=== PATIENT | male | born 1970 | race Hispanic/Latino ===

== ENCOUNTER 2018-02-01 23:55 | Inpatient (IN) | payer OTHER ==
[~2018-02-01 23:55] MED LIST: ASPI-1197 PO; ATOR20TA65 PO; CARV12.580 PO; ISOS30TA6 PO
[2018-02-02] MEDS ORDERED: LABETALOL HCL 5 MG/ML 20ML VIAL IV ONE (00:20)
[2018-02-02 00:39] LABS: BASOPHILS % (AUTO) 0.3 % (0.0-5.0); EOSINOPHILS % (AUTO) 2.1 % (0.0-8.0); HEMATOCRIT 21.3 % (42-54); LYMPHOCYTES % (AUTO) 10.7 % (21.0-51.0); MEAN CORPUSCULAR HEMOGLOBIN 27.5 pg (27.0-33.0); MEAN CORPUSCULAR HGB CONC 33.1 g/dL (32.0-36.0); MEAN CORPUSCULAR VOLUME 83.2 fL (79-99); MONOCYTES % (AUTO) 9.1 % (3.0-13.0); NEUTROPHILS % (AUTO) 77.8 % (40.0-77.0); PLATELET COUNT (AUTO) 259 K/uL (130-400); RED BLOOD CELL COUNT(AUTO) 2.56 MIL/uL (4.50-6.20); RED CELL DISTRIBUTION WIDTH 19.1 % (11.0-15.5); WHITE BLOOD COUNT (AUTO) 11.2 K/uL (4.8-10.8)
[2018-02-02 00:50] LABS: INR 0.96 (0.85-1.15); PARTIAL THROMBOPLASTIN TIME 27.1 SEC (26.3-35.5); PROTHROMBIN TIME 10.1 SEC (9.6-11.6)
[2018-02-02 01:15] LABS: ALBUMIN 3.4 g/dL (3.5-5.0); BILIRUBIN,TOTAL 0.4 mg/dL (0.2-1.0); CREATINE KINASE MB 15.9 ng/mL (0.5-3.6); TOTAL PROTEIN, SERUM 7.1 g/dL (6.0-8.3)
[2018-02-02 01:20] LABS: CREATININE 13.5 mg/dL (0.5-1.5); POTASSIUM 6.9 mmol/L (3.5-5.1)
[2018-02-02] MEDS ORDERED: HYDRALAZINE HCL 20 MG/ML VIAL ONE ×2 (01:29→10:13)
[2018-02-02] MEDS ORDERED: SODIUM BICARB 50MEQ 50ML VIAL ONE (01:32)
[2018-02-02] MEDS ORDERED: DEXTROSE 50%-WATER 50 ML DISP.SYRIN IV ONE (01:33)
[2018-02-02] MEDS ORDERED: INSULIN HUMULIN R 100 UNIT/ML 3ML ONE (01:33)
[2018-02-02] MEDS ORDERED: SODIUM POLYSTYRENE SULFONATE 15 GM/60 ML ML ONE (01:35)
[2018-02-02] MEDS ORDERED: FUROSEMIDE 10 MG/ML 4ML VIAL ONE (02:16)
[2018-02-02] MEDS ORDERED: NITROGLYCERIN 1GM/1 INCH PACKET TD ONE (02:16)
[2018-02-02] MEDS ORDERED: ASPIRIN 325 MG TABLET ONE (02:39)
[2018-02-02 05:15] LABS: BASOPHILS % (AUTO) 0.6 % (0.0-5.0); EOSINOPHILS % (AUTO) 0.8 % (0.0-8.0); MEAN CORPUSCULAR HEMOGLOBIN 28.4 pg (27.0-33.0); MEAN CORPUSCULAR HGB CONC 34.2 g/dL (32.0-36.0); MONOCYTES % (AUTO) 5.2 % (3.0-13.0); NEUTROPHILS % (AUTO) 87.4 % (40.0-77.0); PLATELET COUNT (AUTO) 205 K/uL (130-400); RED BLOOD CELL COUNT(AUTO) 2.09 MIL/uL (4.50-6.20); RED CELL DISTRIBUTION WIDTH 18.7 % (11.0-15.5); WHITE BLOOD COUNT (AUTO) 9.2 K/uL (4.8-10.8)
[2018-02-02 05:32] LABS: HEMATOCRIT 17.3 % (42-54)
[2018-02-02 05:46] LABS: POTASSIUM 6.8 mmol/L (3.5-5.1)
[2018-02-02 05:47] LABS: CREATININE 13.6 mg/dL (0.5-1.5)
[2018-02-02] MEDS ORDERED: SODIUM CHLORIDE 0.9% 1000ML 1,000 ML IV ONE (05:58)
[2018-02-02] MEDS ORDERED: FUROSEMIDE 10 MG/ML 2ML VIAL ONE (10:13)
[2018-02-02] MEDS ORDERED: LIDOCAINE HCL 1% MDV 50ML VIAL ONE (11:24)
[2018-02-02 19:43] LABS: HEMATOCRIT 21.8 % (42-54)
[2018-02-02 20:00] LABS: CHOLESTEROL 185 mg/dL (<200); HDL CHOLESTEROL 49 mg/dL (29-71); LDL DIRECT 139 mg/dL (0-99); TRIGLYCERIDES 90 mg/dL (30-200)
[2018-02-02 20:32] LABS: % IRON SATURATION 21.6 % (30-44)
[2018-02-03 06:12] LABS: MEAN CORPUSCULAR HGB CONC 35.9 g/dL (32.0-36.0); MEAN CORPUSCULAR VOLUME 83.4 fL (79-99); NUCLEATED RED BLOOD CELLS 0.1 % (0.0-0.19); PLATELET COUNT (AUTO) 160 K/uL (130-400); RED BLOOD CELL COUNT(AUTO) 2.29 MIL/uL (4.50-6.20); RED CELL DISTRIBUTION WIDTH 18.3 % (11.0-15.5); WHITE BLOOD COUNT (AUTO) 6.6 K/uL (4.8-10.8)
[2018-02-03 06:26] LABS: POTASSIUM 5.8 mmol/L (3.5-5.1)
[2018-02-03 06:28] LABS: CREATININE 12.2 mg/dL (0.5-1.5)
[2018-02-03 06:29] LABS: HEMATOCRIT 19.1 % (42-54)
[2018-02-03 06:30] LABS: INR 1.02 (0.85-1.15); PROTHROMBIN TIME 10.7 SEC (9.6-11.6)
[2018-02-03] MEDS: FAMOTIDINE 20MG TAB 20 MG TAB PO SCH (09:00)
[2018-02-03] MEDS: ISOSORBIDE MONO 30MG TAB SR PO SCH (09:00)
[2018-02-03] MEDS ORDERED: CARVEDILOL 12.5 MG TABLET PO ONE (10:39)
[2018-02-03] MEDS ORDERED: FAMOTIDINE 20MG TAB 20 MG TAB ONE (10:39)
[2018-02-03] MEDS ORDERED: ISOSORBIDE MONO 30MG TAB SR PO ONE (10:39)
[2018-02-03 19:30] VITALS: BP 187/98
[2018-02-03] MEDS: CARVEDILOL 25 MG TABLET PO SCH (19:48)
[2018-02-03] MEDS: INSULIN HUMULIN R 100 UNIT/ML 3ML SQ SCH (21:00)
[2018-02-03] MEDS ORDERED: SODIUM CHLORIDE 0.9% 250 ML IV ONE (21:18)
[2018-02-03 23:05] VITALS: BP 188/96
[2018-02-04] VITALS (7 sets, daily range): BP systolic 148–179; BP diastolic 72–100
[2018-02-04 03:31] LABS: HEMATOCRIT 22.9 % (42-54); MEAN CORPUSCULAR HGB CONC 34.9 g/dL (32.0-36.0); MEAN CORPUSCULAR VOLUME 83.1 fL (79-99); PLATELET COUNT (AUTO) 159 K/uL (130-400); RED BLOOD CELL COUNT(AUTO) 2.75 MIL/uL (4.50-6.20); RED CELL DISTRIBUTION WIDTH 17.7 % (11.0-15.5); WHITE BLOOD COUNT (AUTO) 7.3 K/uL (4.8-10.8)
[2018-02-04 03:43] LABS: MAGNESIUM 2.8 mg/dL (1.80-2.40)
[2018-02-04 03:52] LABS: CREATININE 9.8 mg/dL (0.5-1.5)
[2018-02-04] MEDS: INSULIN HUMULIN R 100 UNIT/ML 3ML SQ SCH ×4 (05:58→21:43)
[2018-02-04 07:59] LABS: HEPATITIS Bs ANTIGEN SCREEN P Negative (Negative)
[2018-02-04] MEDS: CARVEDILOL 25 MG TABLET PO SCH ×2 (09:19→21:35)
[2018-02-04] MEDS: ISOSORBIDE MONO 30MG TAB SR PO SCH (09:20)
[2018-02-04] MEDS: FAMOTIDINE 20MG TAB 20 MG TAB PO SCH (09:20)
[2018-02-04] MEDS: MAG HYDROX/AL HYDROX/SIMETH ES 30 ML SUSP UDCUP PO PRN (13:08)
[2018-02-04] MEDS ORDERED: SODIUM CHLORIDE 0.9% 1000ML 1,000 ML IV ONE (14:00)
[2018-02-04] MEDS: CALCIUM ACETATE 667 MG CAPSULE PO SCH (17:00)
[2018-02-04] MEDS: HYDRALAZINE HCL 20 MG/ML VIAL IV PRN (18:03)
[2018-02-05] MEDS ORDERED: ONDANSETRON HCL MDV 20ML 2 MG/ML VIAL ONE (02:35)
[2018-02-05] MEDS ORDERED: ONDANSETRON HCL MDV 20ML 2 MG/ML VIAL IVP PRN (02:45)
[2018-02-05 03:51] VITALS: BP 191/100
[2018-02-05 04:56] LABS: HEMATOCRIT 21.7 % (42-54); MEAN CORPUSCULAR HEMOGLOBIN 29.9 pg (27.0-33.0); MEAN CORPUSCULAR HGB CONC 35.5 g/dL (32.0-36.0); MEAN CORPUSCULAR VOLUME 84.1 fL (79-99); PLATELET COUNT (AUTO) 144 K/uL (130-400); RED BLOOD CELL COUNT(AUTO) 2.57 MIL/uL (4.50-6.20); RED CELL DISTRIBUTION WIDTH 17.2 % (11.0-15.5); WHITE BLOOD COUNT (AUTO) 6.8 K/uL (4.8-10.8)
[2018-02-05 05:30] LABS: CREATININE 7.6 mg/dL (0.5-1.5); PHOSPHORUS 5.4 mg/dL (2.5-4.9); POTASSIUM 4.5 mmol/L (3.5-5.1)
[2018-02-05] MEDS: INSULIN HUMULIN R 100 UNIT/ML 3ML SQ SCH ×4 (06:06→20:43)
[2018-02-05 07:00] VITALS: BP 133/74
[2018-02-05] MEDS: CALCIUM ACETATE 667 MG CAPSULE PO SCH ×3 (08:15→17:00)
[2018-02-05] MEDS: FOLIC ACID/VITAMIN B COMP W-C 1 MG CAPSULE PO SCH (08:16)
[2018-02-05] MEDS: ISOSORBIDE MONO 30MG TAB SR PO SCH (08:16)
[2018-02-05] MEDS: CARVEDILOL 25 MG TABLET PO SCH ×2 (08:16→20:00)
[2018-02-05] MEDS: FAMOTIDINE 20MG TAB 20 MG TAB PO SCH (08:17)
[2018-02-05 11:00] VITALS: BP_SYST 125; BP_SYST 135; BP_DIAS 67; BP_DIAS 75
[2018-02-05] MEDS ORDERED: LACTULOSE 20 GM/30 ML UDCUP PO PRN (12:00)
[2018-02-05 16:00] VITALS: BP 174/86
[2018-02-05] MEDS ORDERED: HEPARIN SODIUM 5000UNIT/ML 1ML VIAL ONE (18:37)
[2018-02-05] MEDS ORDERED: SODIUM CHLORIDE 0.9% 1000ML 1,000 ML IV ONE (18:37)
[2018-02-05 19:32] VITALS: BP 174/94
[2018-02-05 23:55] VITALS: BP 165/93
[2018-02-06 03:46] VITALS: BP 169/94
[2018-02-06 04:53] LABS: HEMATOCRIT 21.7 % (42-54); MEAN CORPUSCULAR HEMOGLOBIN 29.3 pg (27.0-33.0); MEAN CORPUSCULAR HGB CONC 35.3 g/dL (32.0-36.0); MEAN CORPUSCULAR VOLUME 83.1 fL (79-99); PLATELET COUNT (AUTO) 142 K/uL (130-400); RED BLOOD CELL COUNT(AUTO) 2.61 MIL/uL (4.50-6.20); RED CELL DISTRIBUTION WIDTH 17.3 % (11.0-15.5); WHITE BLOOD COUNT (AUTO) 7.1 K/uL (4.8-10.8)
[2018-02-06 05:15] LABS: CREATININE 6.5 mg/dL (0.5-1.5); POTASSIUM 4.6 mmol/L (3.5-5.1)
[2018-02-06 05:26] LABS: INR 0.96 (0.85-1.15); PARTIAL THROMBOPLASTIN TIME 25.7 SEC (26.3-35.5); PROTHROMBIN TIME 10.1 SEC (9.6-11.6)
[2018-02-06] MEDS: INSULIN HUMULIN R 100 UNIT/ML 3ML SQ SCH ×4 (06:11→22:03)
[2018-02-06 07:00] VITALS: BP 167/89
[2018-02-06] MEDS: ISOSORBIDE MONO 30MG TAB SR PO SCH (09:02)
[2018-02-06] MEDS: FAMOTIDINE 20MG TAB 20 MG TAB PO SCH (09:02)
[2018-02-06] MEDS: CARVEDILOL 25 MG TABLET PO SCH ×2 (09:03→21:59)
[2018-02-06] MEDS: FOLIC ACID/VITAMIN B COMP W-C 1 MG CAPSULE PO SCH (09:03)
[2018-02-06] MEDS: CALCIUM ACETATE 667 MG CAPSULE PO SCH ×3 (09:03→17:19)
[2018-02-06 11:00] VITALS: BP 134/72
[2018-02-06] MEDS ORDERED: EPOETIN ALFA 20,000 UNIT/ML VIAL SQ SCH ×3 (12:30→13:45)
[2018-02-06] MEDS ORDERED: EPOETIN ALFA 10,000 UNIT/ML VIAL SQ SCH (14:00)
[2018-02-06 16:00] VITALS: BP 161/87
[2018-02-06 19:29] VITALS: BP 185/89
[2018-02-06 23:30] VITALS: BP 199/107
[2018-02-06] MEDS: HYDRALAZINE HCL 20 MG/ML VIAL IV PRN (23:46)
[2018-02-07] VITALS (13 sets, daily range): BP systolic 129–178; BP diastolic 68–104
[2018-02-07 04:11] LABS: BASOPHILS % (AUTO) 0.5 % (0.0-5.0); EOSINOPHILS % (AUTO) 3.4 % (0.0-8.0); HEMATOCRIT 21.8 % (42-54); MEAN CORPUSCULAR HEMOGLOBIN 30.1 pg (27.0-33.0); MEAN CORPUSCULAR HGB CONC 35.9 g/dL (32.0-36.0); MEAN CORPUSCULAR VOLUME 83.9 fL (79-99); MONOCYTES % (AUTO) 14.6 % (3.0-13.0); NEUTROPHILS % (AUTO) 68.5 % (40.0-77.0); PLATELET COUNT (AUTO) 156 K/uL (130-400); RED CELL DISTRIBUTION WIDTH 17.4 % (11.0-15.5); WHITE BLOOD COUNT (AUTO) 8.2 K/uL (4.8-10.8)
[2018-02-07 04:20] LABS: INR 0.97 (0.85-1.15); PARTIAL THROMBOPLASTIN TIME 25.6 SEC (26.3-35.5); PROTHROMBIN TIME 10.2 SEC (9.6-11.6)
[2018-02-07 04:26] LABS: CREATININE 7.4 mg/dL (0.5-1.5); POTASSIUM 4.7 mmol/L (3.5-5.1)
[2018-02-07] MEDS: INSULIN HUMULIN R 100 UNIT/ML 3ML SQ SCH ×4 (06:05→21:16)
[2018-02-07] MEDS: CALCIUM ACETATE 667 MG CAPSULE PO SCH ×3 (08:00→17:09)
[2018-02-07] MEDS: CARVEDILOL 25 MG TABLET PO SCH ×3 (09:00→20:41)
[2018-02-07] MEDS: FOLIC ACID/VITAMIN B COMP W-C 1 MG CAPSULE PO SCH ×2 (09:00→12:08)
[2018-02-07] MEDS: FAMOTIDINE 20MG TAB 20 MG TAB PO SCH (09:00)
[2018-02-07] MEDS: ISOSORBIDE MONO 30MG TAB SR PO SCH ×2 (09:00→12:09)
[2018-02-07] MEDS ORDERED: LIDOCAINE HCL 1% MDV 50ML VIAL ONE (10:44)
[2018-02-07] MEDS ORDERED: 0.9% SODIUM CHLORIDE 250 ML IV BAG IV PRN (17:15)
[2018-02-08 04:03] VITALS: BP 155/83
[2018-02-08 04:42] LABS: HEMATOCRIT 23.6 % (42-54); MEAN CORPUSCULAR HEMOGLOBIN 29.1 pg (27.0-33.0); MEAN CORPUSCULAR HGB CONC 34.5 g/dL (32.0-36.0); MEAN CORPUSCULAR VOLUME 84.3 fL (79-99); PLATELET COUNT (AUTO) 142 K/uL (130-400); WHITE BLOOD COUNT (AUTO) 7.1 K/uL (4.8-10.8)
[2018-02-08 04:51] LABS: CREATININE 6.1 mg/dL (0.5-1.5); POTASSIUM 4.2 mmol/L (3.5-5.1)
[2018-02-08] MEDS: INSULIN HUMULIN R 100 UNIT/ML 3ML SQ SCH ×4 (05:46→22:36)
[2018-02-08] MEDS: FOLIC ACID/VITAMIN B COMP W-C 1 MG CAPSULE PO SCH (07:18)
[2018-02-08] MEDS: CARVEDILOL 25 MG TABLET PO SCH ×2 (07:18→21:09)
[2018-02-08] MEDS: ISOSORBIDE MONO 30MG TAB SR PO SCH (07:19)
[2018-02-08] MEDS: FAMOTIDINE 20MG TAB 20 MG TAB PO SCH (07:19)
[2018-02-08] MEDS: CALCIUM ACETATE 667 MG CAPSULE PO SCH ×3 (07:19→16:47)
[2018-02-08 07:37] VITALS: BP 178/92
[2018-02-08 11:10] VITALS: BP 148/83
[2018-02-08 16:27] VITALS: BP 152/82
[2018-02-08] MEDS: MAG HYDROX/AL HYDROX/SIMETH ES 30 ML SUSP UDCUP PO PRN ×2 (18:01→22:47)
[2018-02-08 19:40] VITALS: BP 156/78
[2018-02-08 23:26] VITALS: BP 156/99
[2018-02-09] VITALS (7 sets, daily range): BP systolic 147–187; BP diastolic 71–105
[2018-02-09 04:29] LABS: HEMATOCRIT 23.1 % (42-54); MEAN CORPUSCULAR HEMOGLOBIN 30.1 pg (27.0-33.0); MEAN CORPUSCULAR HGB CONC 35.7 g/dL (32.0-36.0); MEAN CORPUSCULAR VOLUME 84.2 fL (79-99); PLATELET COUNT (AUTO) 168 K/uL (130-400); RED BLOOD CELL COUNT(AUTO) 2.75 MIL/uL (4.50-6.20); WHITE BLOOD COUNT (AUTO) 7.4 K/uL (4.8-10.8)
[2018-02-09 04:54] LABS: CREATININE 7.5 mg/dL (0.5-1.5); POTASSIUM 4.5 mmol/L (3.5-5.1)
[2018-02-09 05:13] LABS: BAND NEUTROPHILS % (MANUAL) 3 % (0-2); BASOPHILS % (MANUAL) 2 % (0-2); EOSINOPHILS % (MANUAL) 4 % (1-6); LYMPHOCYTES % (MANUAL) 13 % (22-44); MAN.DIFF COMMENT-IMPRESSION MANUAL DIFFERENTIAL; MONOCYTES % (MANUAL) 5 % (2-9); PLATELET MORPHOLOGY COMMENT ADEQUATE; SEGMENTED NEUTROPHILS % 73 % (40-70)
[2018-02-09] MEDS: INSULIN HUMULIN R 100 UNIT/ML 3ML SQ SCH ×4 (06:04→21:00)
[2018-02-09] MEDS: CALCIUM ACETATE 667 MG CAPSULE PO SCH ×3 (08:00→17:00)
[2018-02-09] MEDS: FOLIC ACID/VITAMIN B COMP W-C 1 MG CAPSULE PO SCH (08:17)
[2018-02-09] MEDS: CARVEDILOL 25 MG TABLET PO SCH ×2 (09:00→21:55)
[2018-02-09] MEDS: FAMOTIDINE 20MG TAB 20 MG TAB PO SCH ×2 (09:00→18:24)
[2018-02-09] MEDS: ISOSORBIDE MONO 30MG TAB SR PO SCH ×2 (09:00→18:24)
[2018-02-09] MEDS: HEPARIN SODIUM 5000UNIT/ML 1ML VIAL IJ PRN (12:40)
[2018-02-09] MEDS: SODIUM CHLORIDE 0.9% 1000ML 1,000 ML IV PRN (12:41)
[2018-02-10 04:05] VITALS: BP 169/90
[2018-02-10] MEDS: HYDRALAZINE HCL 20 MG/ML VIAL IV PRN ×2 (04:30→11:17)
[2018-02-10 04:37] LABS: BASOPHILS % (AUTO) 0.6 % (0.0-5.0); EOSINOPHILS % (AUTO) 2.5 % (0.0-8.0); HEMATOCRIT 22.3 % (42-54); LYMPHOCYTES % (AUTO) 15.1 % (21.0-51.0); MEAN CORPUSCULAR HEMOGLOBIN 29.2 pg (27.0-33.0); MEAN CORPUSCULAR HGB CONC 34.7 g/dL (32.0-36.0); MEAN CORPUSCULAR VOLUME 84.2 fL (79-99); MONOCYTES % (AUTO) 16.2 % (3.0-13.0); NEUTROPHILS % (AUTO) 65.6 % (40.0-77.0); PLATELET COUNT (AUTO) 150 K/uL (130-400); RED BLOOD CELL COUNT(AUTO) 2.64 MIL/uL (4.50-6.20); RED CELL DISTRIBUTION WIDTH 16.8 % (11.0-15.5); WHITE BLOOD COUNT (AUTO) 6.9 K/uL (4.8-10.8)
[2018-02-10 04:49] LABS: CREATININE 6.4 mg/dL (0.5-1.5); POTASSIUM 4.4 mmol/L (3.5-5.1)
[2018-02-10 04:51] LABS: INR 0.99 (0.85-1.15); PARTIAL THROMBOPLASTIN TIME 26.6 SEC (26.3-35.5); PROTHROMBIN TIME 10.4 SEC (9.6-11.6)
[2018-02-10] MEDS: INSULIN HUMULIN R 100 UNIT/ML 3ML SQ SCH ×4 (06:07→20:43)
[2018-02-10 07:20] VITALS: BP_SYST 135; BP_SYST 177; BP_DIAS 59; BP_DIAS 80
[2018-02-10] MEDS: CALCIUM ACETATE 667 MG CAPSULE PO SCH ×3 (07:34→17:31)
[2018-02-10] MEDS: FOLIC ACID/VITAMIN B COMP W-C 1 MG CAPSULE PO SCH (07:34)
[2018-02-10] MEDS: ISOSORBIDE MONO 30MG TAB SR PO SCH (07:56)
[2018-02-10] MEDS: CARVEDILOL 25 MG TABLET PO SCH ×2 (07:56→23:02)
[2018-02-10] MEDS: FAMOTIDINE 20MG TAB 20 MG TAB PO SCH (07:56)
[2018-02-10 11:26] VITALS: BP 154/101
[2018-02-10 16:11] VITALS: BP 162/77
[2018-02-10 19:32] VITALS: BP 148/80
[2018-02-10 23:41] VITALS: BP 162/91
[2018-02-11] VITALS (23 sets, daily range): BP systolic 108–187; BP diastolic 61–96
[2018-02-11] MEDS: HYDRALAZINE HCL 20 MG/ML VIAL IV PRN (03:48)
[2018-02-11 04:25] LABS: BASOPHILS % (AUTO) 0.5 % (0.0-5.0); HEMATOCRIT 21.7 % (42-54); LYMPHOCYTES % (AUTO) 13.2 % (21.0-51.0); MEAN CORPUSCULAR HEMOGLOBIN 30.2 pg (27.0-33.0); MEAN CORPUSCULAR HGB CONC 35.7 g/dL (32.0-36.0); MEAN CORPUSCULAR VOLUME 84.6 fL (79-99); MONOCYTES % (AUTO) 15.8 % (3.0-13.0); NEUTROPHILS % (AUTO) 68.5 % (40.0-77.0); PLATELET COUNT (AUTO) 152 K/uL (130-400); RED BLOOD CELL COUNT(AUTO) 2.57 MIL/uL (4.50-6.20); RED CELL DISTRIBUTION WIDTH 16.8 % (11.0-15.5); WHITE BLOOD COUNT (AUTO) 6.3 K/uL (4.8-10.8)
[2018-02-11 04:28] LABS: CREATININE 7.3 mg/dL (0.5-1.5); POTASSIUM 4.5 mmol/L (3.5-5.1)
[2018-02-11] MEDS ORDERED: PAPAVERINE HCL 30 MG/ML 2ML VIAL ONE (06:47)
[2018-02-11] MEDS ORDERED: BACITRACIN 50,000 UNIT VIAL ONE (06:47)
[2018-02-11] MEDS ORDERED: DEXAMETHASONE SOD PHOSPHATE 10MG/ML 1ML VIAL ONE (06:49)
[2018-02-11] MEDS ORDERED: FENTANYL CITRATE PF 50 MCG/1 ML 2ML VIAL ONE (06:49)
[2018-02-11] MEDS ORDERED: SUCCINYLCHOLINE 200MG/10ML SYR ONE (06:49)
[2018-02-11] MEDS ORDERED: MIDAZOLAM HCL 1 MG/ML 2ML VIAL ONE (06:49)
[2018-02-11] MEDS ORDERED: GLYCOPYRROLATE 0.2 MG/ML 5 ML VIAL ONE (06:49)
[2018-02-11] MEDS ORDERED: PROPOFOL 10 MG/ML 20ML VIAL IV ONE (06:49)
[2018-02-11] MEDS ORDERED: LIDOCAINE PF 2% 5ML ABBOJECT ONE (06:49)
[2018-02-11] MEDS: INSULIN HUMULIN R 100 UNIT/ML 3ML SQ SCH ×4 (07:30→20:40)
[2018-02-11] MEDS: SODIUM CHLORIDE 0.9% 1000ML 1,000 ML IV PRN (07:37)
[2018-02-11] MEDS: CALCIUM ACETATE 667 MG CAPSULE PO SCH ×4 (08:00→16:57)
[2018-02-11] MEDS ORDERED: CEFAZOLIN SODIUM 1 GM VIAL ONE ×2 (08:07→08:14)
[2018-02-11] MEDS ORDERED: EPHEDRINE SULFATE 50 MG/ML AMPULE ONE (08:10)
[2018-02-11] MEDS: ISOSORBIDE MONO 30MG TAB SR PO SCH (09:00)
[2018-02-11] MEDS: CARVEDILOL 25 MG TABLET PO SCH ×2 (09:00→19:22)
[2018-02-11] MEDS: FAMOTIDINE 20MG TAB 20 MG TAB PO SCH (09:00)
[2018-02-11] MEDS: FOLIC ACID/VITAMIN B COMP W-C 1 MG CAPSULE PO SCH (09:00)
[2018-02-11] MEDS ORDERED: MORPHINE SULFATE 2 MG/ML 1ML SYG IM PRN (09:15)
[2018-02-11] MEDS ORDERED: MEPERIDINE-PF 25 MG/ML SYG ONE ×2 (09:27→09:35)
[2018-02-12] VITALS (7 sets, daily range): BP systolic 129–183; BP diastolic 68–91
[2018-02-12 04:05] LABS: HEMATOCRIT 25.7 % (42-54); MEAN CORPUSCULAR HEMOGLOBIN 29.6 pg (27.0-33.0); MEAN CORPUSCULAR HGB CONC 34.6 g/dL (32.0-36.0); MEAN CORPUSCULAR VOLUME 85.5 fL (79-99); PLATELET COUNT (AUTO) 222 K/uL (130-400); RED BLOOD CELL COUNT(AUTO) 3.01 MIL/uL (4.50-6.20); WHITE BLOOD COUNT (AUTO) 8.4 K/uL (4.8-10.8)
[2018-02-12 04:18] LABS: POTASSIUM 4.9 mmol/L (3.5-5.1)
[2018-02-12 04:29] LABS: CREATININE 8.6 mg/dL (0.5-1.5)
[2018-02-12] MEDS: INSULIN HUMULIN R 100 UNIT/ML 3ML SQ SCH ×4 (06:11→20:57)
[2018-02-12] MEDS: ISOSORBIDE MONO 30MG TAB SR PO SCH (08:50)
[2018-02-12] MEDS: FOLIC ACID/VITAMIN B COMP W-C 1 MG CAPSULE PO SCH (08:50)
[2018-02-12] MEDS: CARVEDILOL 25 MG TABLET PO SCH ×2 (08:50→20:25)
[2018-02-12] MEDS: FAMOTIDINE 20MG TAB 20 MG TAB PO SCH (08:51)
[2018-02-12] MEDS: CALCIUM ACETATE 667 MG CAPSULE PO SCH ×3 (08:51→16:41)
[2018-02-13 03:40] VITALS: BP 150/88
[2018-02-13] MEDS: INSULIN HUMULIN R 100 UNIT/ML 3ML SQ SCH ×4 (06:18→21:00)
[2018-02-13 07:30] VITALS: BP 188/96
[2018-02-13] MEDS: CARVEDILOL 25 MG TABLET PO SCH ×2 (08:02→21:11)
[2018-02-13] MEDS: FOLIC ACID/VITAMIN B COMP W-C 1 MG CAPSULE PO SCH (08:02)
[2018-02-13] MEDS: FAMOTIDINE 20MG TAB 20 MG TAB PO SCH (08:02)
[2018-02-13] MEDS: ISOSORBIDE MONO 30MG TAB SR PO SCH (08:02)
[2018-02-13] MEDS: CALCIUM ACETATE 667 MG CAPSULE PO SCH ×3 (08:02→16:24)
[2018-02-13 11:45] VITALS: BP 141/75
[2018-02-13 16:10] VITALS: BP 148/80
[2018-02-13 19:27] VITALS: BP 163/83
[2018-02-13] MEDS: HYDRALAZINE HCL 20 MG/ML VIAL IV PRN (23:38)
[2018-02-13 23:58] VITALS: BP 183/99
[2018-02-14 03:57] VITALS: BP 176/83
[2018-02-14 04:04] LABS: BASOPHILS % (AUTO) 0.8 % (0.0-5.0); EOSINOPHILS % (AUTO) 2.4 % (0.0-8.0); LYMPHOCYTES % (AUTO) 16.9 % (21.0-51.0); MEAN CORPUSCULAR HEMOGLOBIN 28.9 pg (27.0-33.0); MEAN CORPUSCULAR HGB CONC 33.8 g/dL (32.0-36.0); MEAN CORPUSCULAR VOLUME 85.3 fL (79-99); NEUTROPHILS % (AUTO) 62.9 % (40.0-77.0); PLATELET COUNT (AUTO) 186 K/uL (130-400); RED BLOOD CELL COUNT(AUTO) 2.81 MIL/uL (4.50-6.20)
[2018-02-14 04:18] LABS: POTASSIUM 4.9 mmol/L (3.5-5.1)
[2018-02-14 04:33] LABS: CREATININE 8.6 mg/dL (0.5-1.5)
[2018-02-14] MEDS: INSULIN HUMULIN R 100 UNIT/ML 3ML SQ SCH ×2 (06:10→11:27)
[2018-02-14 07:52] VITALS: BP 195/100
[2018-02-14] MEDS: ISOSORBIDE MONO 30MG TAB SR PO SCH (08:26)
[2018-02-14] MEDS: FOLIC ACID/VITAMIN B COMP W-C 1 MG CAPSULE PO SCH (08:26)
[2018-02-14] MEDS: FAMOTIDINE 20MG TAB 20 MG TAB PO SCH (08:27)
[2018-02-14] MEDS: CALCIUM ACETATE 667 MG CAPSULE PO SCH ×2 (08:27→11:50)
[2018-02-14] MEDS: CARVEDILOL 25 MG TABLET PO SCH (08:27)
[2018-02-14] MEDS: HEPARIN SODIUM 5000UNIT/ML 1ML VIAL IJ PRN (09:04)
[2018-02-14 11:38] VITALS: BP 146/77
[2018-02-14 14:06] LABS: HEMOGLOBIN A1C 5.9 % (4.0-6.0)
[2018-02-14] MEDS ORDERED: LISINOPRIL 10 MG TABLET PO SCH (21:00)
== END 2018-02-14 15:30 | disposition home or self-care (01) | DRG 264 ==
LOC: EDH 23:55 → EDHIP 23:56 → 2DH 02-03 17:56
PROVIDERS: ADMIT Family Medicine; ATTEND Family Medicine
PROC: 30233N1 Transfusion of Nonautologous Red Blood Cells into Peripheral Vein, Percutaneous Approach (ICD-10-PCS; principal; 2018-02-02)
PROC: 02H633Z Insertion of Infusion Device into Right Atrium, Percutaneous Approach (ICD-10-PCS; 2018-02-02)
PROC: 5A1D70Z Performance of Urinary Filtration, Intermittent, Less than 6 Hours Per Day (ICD-10-PCS; 2018-02-02)
PROC: 5A1D70Z Performance of Urinary Filtration, Intermittent, Less than 6 Hours Per Day (ICD-10-PCS; 2018-02-03)
PROC: 5A1D70Z Performance of Urinary Filtration, Intermittent, Less than 6 Hours Per Day (ICD-10-PCS; 2018-02-04)
PROC: 5A1D70Z Performance of Urinary Filtration, Intermittent, Less than 6 Hours Per Day (ICD-10-PCS; 2018-02-05)
PROC: 05HM33Z Insertion of Infusion Device into Right Internal Jugular Vein, Percutaneous Approach (ICD-10-PCS; 2018-02-07)
PROC: 05PYX3Z Removal of Infusion Device from Upper Vein, External Approach (ICD-10-PCS; 2018-02-07)
PROC: 02H633Z Insertion of Infusion Device into Right Atrium, Percutaneous Approach (ICD-10-PCS; 2018-02-07)
PROC: 0JH63XZ Insertion of Tunneled Vascular Access Device into Chest Subcutaneous Tissue and Fascia, Percutaneous Approach (ICD-10-PCS; 2018-02-07)
PROC: 5A1D70Z Performance of Urinary Filtration, Intermittent, Less than 6 Hours Per Day (ICD-10-PCS; 2018-02-07)
PROC: 5A1D70Z Performance of Urinary Filtration, Intermittent, Less than 6 Hours Per Day (ICD-10-PCS; 2018-02-09)
PROC: 03180ZD Bypass Left Brachial Artery to Upper Arm Vein, Open Approach (ICD-10-PCS; 2018-02-11)
PROC: 5A1D70Z Performance of Urinary Filtration, Intermittent, Less than 6 Hours Per Day (ICD-10-PCS; 2018-02-12)
PROC: 5A1D70Z Performance of Urinary Filtration, Intermittent, Less than 6 Hours Per Day (ICD-10-PCS; 2018-02-14)
DX: I13.2 Hypertensive heart and chronic kidney disease with heart failure and with stage 5 chronic kidney disease, or end stage renal disease (principal); N17.9 Acute kidney failure, unspecified; E11.21 Type 2 diabetes mellitus with diabetic nephropathy; E11.51 Type 2 diabetes mellitus with diabetic peripheral angiopathy without gangrene; N18.6 End stage renal disease; M62.82 Rhabdomyolysis; I50.9 Heart failure, unspecified; D63.8 Anemia in other chronic diseases classified elsewhere; E11.22 Type 2 diabetes mellitus with diabetic chronic kidney disease; E11.65 Type 2 diabetes mellitus with hyperglycemia; E66.9 Obesity, unspecified; E87.5 Hyperkalemia; G47.30 Sleep apnea, unspecified; I25.10 Atherosclerotic heart disease of native coronary artery without angina pectoris; Z82.49 Family history of ischemic heart disease and other diseases of the circulatory system; Z99.2 Dependence on renal dialysis; Z86.73 Personal history of transient ischemic attack (TIA), and cerebral infarction without residual deficits
CPT/HCPCS: 36415; 36581; 71045; 76770; 77001; 80048; 80053; 80061; 82550; 82553; 82728; 82948; 83036; 83540; 83550; 83735; 83874; 83880; 84100; 84484; 85014; 85018; 85025; 85027; 85060; 85610; 85730; 86701; 86704; 86706; 86850; 86900; 86901; 86922; 87340; 87390; 87520; 88313; 90935; 93005; 93971; C1750; C1752; J0330; J0360; J0690; J0885; J1100; J1644; J1815; J1940; J2001; J2175; J2250; J2440; J2704; J3010; J3490; J7030; J7070; P9016

== ENCOUNTER 2019-03-14 22:01 | Emergency (ER) | payer MEDICARE | END 2019-03-15 00:30 | disposition home or self-care (01) | LOC: EDH 22:01 | DX: T82.838A Hemorrhage due to vascular prosthetic devices, implants and grafts, initial encounter (principal); I10 Essential (primary) hypertension; E11.9 Type 2 diabetes mellitus without complications; Z87.891 Personal history of nicotine dependence; Z98.890 Other specified postprocedural states ==

== ENCOUNTER 2020-07-19 06:53 | Observation (INO) | payer MEDICARE ==
--- NOTE | 2020-07-16 09:59 | NUR ---
REPORT CALLED DR GLEASON INFORMED PT DID NOT COME IN FOR PREOP LAB WORK SO COVID SWAB WAS NOT DONE. OK TO PERFORM RAPID COVID TEST AND PROCEED PLANNED IF DR RAY OK. CALLED DR RAY AND SPOKE TO LAVERN. SHE WILL CALL ME BACK WITH FURTHER INSTRUCTIONS
--- NOTE | 2020-07-16 14:21 | NUR ---
DR RAY GAVE OK FOR PT TO HAVE A RAPID COVID SCREEN ON PRE-OP
--- NOTE | 2020-07-16 14:31 | NUR ---
PT CALLED. PT CANCELLED PROCEDURE HIMSELF. HE WANTS TO BE RESCHEDULED FOR NEXT WEEK. I CALLED DR RAY AND INFORMED HER OF PT DECISION. PT INSTRUCTED TO CALL DR RAY OFFICE., AGUSTIN OR GIS DEVELOPER MADE AWARE OF PT CANCELLATION
[2020-07-17 09:37] LABS: BASOPHILS % (AUTO) 0.5 % (0.0-5.0); EOSINOPHILS % (AUTO) 3.5 % (0.0-8.0); HEMATOCRIT 36.3 % (42-54); LYMPHOCYTES % (AUTO) 11.7 % (21.0-51.0); MEAN CORPUSCULAR HGB CONC 31.1 g/dL (32.0-36.0); MEAN CORPUSCULAR VOLUME 83.6 fL (79-99); PLATELET COUNT (AUTO) 152 K/uL (130-400); RED BLOOD CELL COUNT(AUTO) 4.34 MIL/uL (4.50-6.20); WHITE BLOOD COUNT (AUTO) 6.1 K/uL (4.8-10.8)
[2020-07-17 09:49] LABS: INR 0.99 (0.85-1.15); PARTIAL THROMBOPLASTIN TIME 28.2 SEC (26.3-35.5); PROTHROMBIN TIME 10.7 SEC (9.6-11.6)
[2020-07-17 09:53] LABS: ALBUMIN 3.5 g/dL (3.5-5.0); BILIRUBIN,TOTAL 0.5 mg/dL (0.2-1.0); CREATININE 7.8 mg/dL (0.5-1.5); TOTAL PROTEIN, SERUM 7.9 g/dL (6.0-8.3)
[2020-07-17 10:14] LABS: POTASSIUM 6.3 mmol/L (3.5-5.1)
[2020-07-17] MEDS: CEFAZOLIN SODIUM 1 GM VIAL IVP SCH (13:00)
--- NOTE | 2020-07-18 10:43 | NUR ---
GILBERT HOWARD, DR. RAY'S ASST ON PHONE. STATES PER DR. RAY WILL PROCEED WITH PROCEDURE TOMORROW. WILL JUST NEED POTASSIUM REPEATED IN AM OF PROCEDURE.
[2020-07-18 12:49] VITALS: BP 179/90
[~2020-07-19] VITALS: Ht 185.4 cm; Wt 86.3 kg
[2020-07-19] VITALS (22 sets, daily range): BP systolic 142–208; BP diastolic 70–117
[~2020-07-19 06:53] MED LIST changes: -ASPI-1197 PO; -ATOR20TA65 PO; -CARV12.580 PO; +CARV25TA PO; +LISI40TA4 PO
[2020-07-19] MEDS ORDERED: SODIUM CHLORIDE 0.9% 1000ML 1,000 ML IV ONE (07:09)
[2020-07-19] MEDS ORDERED: BUPIVACAINE/PF 0.5% 30ML VIAL ONE (07:48)
--- NOTE | 2020-07-19 07:55 | NUR ---
Elevated potassium Spoke to Dr. Bishop and made her aware that potassium was redrawn and continues elevated at 5.9. States to inform anesthesia. Anesthesia (MARIA LUISA Chisholm) made aware. Addendum: 07/19/20 at 1306 by SABINE CHATTERJEE RN RN Typo corrected- Potassium 5.6
[2020-07-19] MEDS ORDERED: DEXTROSE 50%-WATER 25 GM/50 ML VIAL ONE (08:25)
--- NOTE | 2020-07-19 08:30 | NUR ---
Order Order was received to give regular insulin 5u IV to follow by 1/2 amp of 50% dextrose.
[2020-07-19] MEDS ORDERED: INSULIN HUMULIN R 100 UNIT/ML 3ML ONE (08:32)
--- NOTE | 2020-07-19 08:40 | NUR ---
Pt to OR Pt was taken to OR by MAYELIN Zepeda and made her aware of insulin and dextrose was given as ordered. BS 90mg/dl prior to insulin and dextrose administration. MARIA LUISA Chisholm was made aware. Pt AAOx4 in no distress.
[2020-07-19] MEDS ORDERED: MIDAZOLAM HCL 1 MG/ML 2ML VIAL ONE (08:46)
[2020-07-19] MEDS ORDERED: PROPOFOL 10 MG/ML 20ML VIAL IV ONE (08:46)
[2020-07-19] MEDS ORDERED: LIDOCAINE PF 2% 5ML ABBOJECT ONE (08:46)
[2020-07-19] MEDS ORDERED: DEXAMETHASONE SOD PHOSPHATE 10MG/ML 1ML VIAL ONE (08:46)
[2020-07-19] MEDS ORDERED: ONDANSETRON HCL 4 MG/2 ML VIAL ONE (08:46)
[2020-07-19] MEDS ORDERED: ROCURONIUM 10MG/1ML SYR 10 MG/ML ML ONE ×2 (08:47→09:38)
[2020-07-19] MEDS ORDERED: FENTANYL CITRATE PF 50 MCG/1 ML 2ML VIAL ONE (08:47)
[2020-07-19] MEDS: CEFAZOLIN SODIUM 1 GM VIAL IVP SCH (09:00)
[2020-07-19] MEDS ORDERED: EPHEDRINE SULFATE 50 MG/ML AMPULE ONE (09:38)
[2020-07-19] MEDS ORDERED: GLYCOPYRROLATE 1 MG/5 ML SYRINGE ONE ×2 (10:05→11:27)
[2020-07-19] MEDS ORDERED: ALBUMIN (HUMAN) 5% 250 ML IV ONE (10:07)
[2020-07-19] MEDS ORDERED: NEOSTIGMINE 5MG/5ML SYR IV ONE (11:27)
[2020-07-19] MEDS ORDERED: MEPERIDINE-PF 25 MG/ML SYG ONE ×2 (11:48→12:05)
[2020-07-19] MEDS: LISINOPRIL 40 MG TABLET PO SCH (15:29)
[2020-07-19] MEDS: ISOSORBIDE MONO 30MG TAB SR PO SCH (15:29)
[2020-07-19] MEDS: MORPHINE SULFATE 4 MG/1ML SYG IV PRN ×2 (18:13→22:10)
[2020-07-19] MEDS: CARVEDILOL 25 MG TABLET PO SCH (20:59)
[2020-07-20] VITALS: BP 160/80
[2020-07-20 04:05] VITALS: BP 114/67
[2020-07-20 05:19] LABS: HEMATOCRIT 33.3 % (42-54); MEAN CORPUSCULAR HEMOGLOBIN 26.3 pg (27.0-33.0); MEAN CORPUSCULAR HGB CONC 32.4 g/dL (32.0-36.0); MEAN CORPUSCULAR VOLUME 81.2 fL (79-99); RED BLOOD CELL COUNT(AUTO) 4.1 MIL/uL (4.50-6.20); RED CELL DISTRIBUTION WIDTH 16.6 % (11.0-15.5); WHITE BLOOD COUNT (AUTO) 11.5 K/uL (4.8-10.8)
[2020-07-20 05:45] LABS: ALBUMIN 3.1 g/dL (3.5-5.0); BILIRUBIN,TOTAL 0.5 mg/dL (0.2-1.0)
[2020-07-20 05:48] LABS: CREATININE 8.1 mg/dL (0.5-1.5); POTASSIUM 7.3 mmol/L (3.5-5.1)
[2020-07-20 08:00] VITALS: BP 101/57
[2020-07-20] MEDS: CARVEDILOL 25 MG TABLET PO SCH ×2 (09:00→09:37)
[2020-07-20] MEDS: MORPHINE SULFATE 4 MG/1ML SYG IV PRN (09:37)
[2020-07-20] MEDS: LISINOPRIL 40 MG TABLET PO SCH ×2 (09:37→09:48)
[2020-07-20] MEDS: ISOSORBIDE MONO 30MG TAB SR PO SCH ×2 (09:38→09:48)
--- NOTE | 2020-07-20 09:46 | NUR ---
Bloodm pressure medications held at tis time. B/P 101/57. Pt have dialysis scheduled for today. Will continue to monitor.
[2020-07-20 11:30] VITALS: BP 131/71
[2020-07-20 16:00] VITALS: BP 114/71
--- NOTE | 2020-07-20 17:37 | NUR ---
cm note met with pt and states resides at home with spouse, independent with adls and ambulation. no dme. goes to HD as OP with [facility] Tayo ledezma with dr Todd, TTS schedule. pt drives self. dc plan is back home. states no dc needs. Addendum: 07/20/20 at 1741 by RONALD TOLLIVER CM Amended: Links added.
[2020-07-20] MEDS ORDERED: SODIUM CHLORIDE 0.9% 1000ML 1,000 ML IV PRN (18:00)
== END 2020-07-20 21:03 | disposition home or self-care (01) ==
LOC: DAH 06:53 → DAHIP 06:54 → 4BH 12:56
PROVIDERS: ADMIT Student in an Organized Health Care Education/Training Program; ATTEND Student in an Organized Health Care Education/Training Program
DX: K40.20 Bilateral inguinal hernia, without obstruction or gangrene, not specified as recurrent (principal); Z20.828 Contact with and (suspected) exposure to other viral communicable diseases; I12.0 Hypertensive chronic kidney disease with stage 5 chronic kidney disease or end stage renal disease; E11.22 Type 2 diabetes mellitus with diabetic chronic kidney disease; N18.6 End stage renal disease; E87.5 Hyperkalemia; R18.8 Other ascites; Z99.2 Dependence on renal dialysis
CPT/HCPCS: 36415 ×3; 49505; 80053 ×2; 82948 ×8; 84132; 85025; 85027; 85610; 85730; 96361 ×2; 96374; 96376 ×2; A4213; A4215; A4221; A4223; A4663; A6207; A6260; C1781 ×2; C9803; G0168; G0378 ×19; J0690; J1100; J1815; J2001; J2175 ×2; J2250; J2270 ×2; J2405; J2704; J2710; J3010; J3490 ×4; J7030 ×3; J7070; P9045; U0003; 90935

== ENCOUNTER 2020-07-26 15:50 | Observation (INO) | payer MEDICARE ==
[~2020-07-26] VITALS: Ht 185.4 cm; Wt 88.9 kg
[2020-07-26 16:12] LABS: BASOPHILS % (AUTO) 0.6 % (0.0-5.0); EOSINOPHILS % (AUTO) 2.7 % (0.0-8.0); HEMATOCRIT 34.8 % (42-54); LYMPHOCYTES % (AUTO) 10.7 % (21.0-51.0); MEAN CORPUSCULAR HEMOGLOBIN 26.6 pg (27.0-33.0); MEAN CORPUSCULAR HGB CONC 32.2 g/dL (32.0-36.0); MEAN CORPUSCULAR VOLUME 82.7 fL (79-99); MONOCYTES % (AUTO) 13.8 % (3.0-13.0); NEUTROPHILS % (AUTO) 71.6 % (40.0-77.0); PLATELET COUNT (AUTO) 191 K/uL (130-400); RED BLOOD CELL COUNT(AUTO) 4.21 MIL/uL (4.50-6.20); RED CELL DISTRIBUTION WIDTH 16.8 % (11.0-15.5)
[2020-07-26] MEDS ORDERED: HYDRALAZINE HCL 20 MG/ML VIAL ONE ×2 (16:12→20:34)
[2020-07-26 16:25] LABS: CREATININE 6.6 mg/dL (0.5-1.5); INR 1.09 (0.85-1.15); PARTIAL THROMBOPLASTIN TIME 29.1 SEC (26.3-35.5); POTASSIUM 5.4 mmol/L (3.5-5.1); PROTHROMBIN TIME 11.7 SEC (9.6-11.6)
[2020-07-26 16:36] LABS: ALBUMIN 3.3 g/dL (3.5-5.0); BILIRUBIN,TOTAL 0.7 mg/dL (0.2-1.0); TOTAL PROTEIN, SERUM 7.8 g/dL (6.0-8.3)
[2020-07-26] MEDS ORDERED: LABETALOL 20 MG/4 ML DISP.SYRIN IV ONE (17:01)
[2020-07-26] MEDS ORDERED: LACTULOSE 20 GM/30 ML UDCUP ONE (18:05)
[2020-07-26] MEDS ORDERED: ONDANSETRON HCL 4 MG/2 ML VIAL IV PRN (20:00)
[2020-07-26] MEDS ORDERED: ACETAMINOPHEN 325 MG TAB PO PRN ×2 (20:00)
[2020-07-26] MEDS ORDERED: HYDRALAZINE HCL 20 MG/ML VIAL IV PRN (20:00)
[2020-07-26] MEDS ORDERED: NITROGLYCERIN 0.4 MG SL TAB SL PRN (20:00)
[2020-07-26] MEDS ORDERED: BISACODYL 10 MG SUPP.RECT RC ONE ×2 (20:15→20:33)
[2020-07-26 23:30] VITALS: BP 162/83
[2020-07-27 04:00] VITALS: BP 129/76
[2020-07-27 08:00] VITALS: BP 160/77
[2020-07-27] MEDS: ASPIRIN 81MG TAB.CHEW PO SCH (10:56)
[2020-07-27] MEDS: CARVEDILOL 25 MG TABLET PO SCH ×2 (10:57→20:48)
[2020-07-27] MEDS: LISINOPRIL 40 MG TABLET PO SCH (10:57)
[2020-07-27] MEDS: ISOSORBIDE MONO 30MG TAB SR PO SCH (10:57)
[2020-07-27 12:00] VITALS: BP 163/84
[2020-07-27] MEDS ORDERED: MAGNESIUM CITRATE 296 ML SOLUTION PO SCH (14:04)
--- NOTE | 2020-07-27 15:13 | NUR ---
INITIAL SW spoke with patient. He states he lives with his , Ynes Goss. He has no home services. Dialysis: TTS at [facility] in [place] at 2pm. He drives himself to treatment. DME: [facility]. Patient is able to complete ADL's independently and drives. 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 PCP is Dr. Dhaval Fitch. Pharmacy is [facility] in [place]. No safety concerns voiced on returning home. DCP is home. Addendum: 07/27/20 at 1518 by DOMINGO FABIAN SS Amended: Links added.
[2020-07-27 16:00] VITALS: BP 137/73
[2020-07-27 19:56] VITALS: BP 153/77
[2020-07-27 23:47] VITALS: BP 139/70
[2020-07-28 04:00] VITALS: BP 124/63
--- NOTE | 2020-07-28 04:00 | NUR ---
Patient remained stable post HD 07/27. Patient repost several loose stools post laxative. He cannot remember how many time he has gone; but is happy that he can finally go, he said. No acute distress observed.
[2020-07-28 06:23] LABS: BASOPHILS % (AUTO) 0.3 % (0.0-5.0); EOSINOPHILS % (AUTO) 4.6 % (0.0-8.0); HEMATOCRIT 27.9 % (42-54); LYMPHOCYTES % (AUTO) 12.3 % (21.0-51.0); MEAN CORPUSCULAR HEMOGLOBIN 26.4 pg (27.0-33.0); MEAN CORPUSCULAR HGB CONC 31.9 g/dL (32.0-36.0); MEAN CORPUSCULAR VOLUME 82.8 fL (79-99); MONOCYTES % (AUTO) 16.8 % (3.0-13.0); NEUTROPHILS % (AUTO) 65.5 % (40.0-77.0); PLATELET COUNT (AUTO) 173 K/uL (130-400); RED BLOOD CELL COUNT(AUTO) 3.37 MIL/uL (4.50-6.20); RED CELL DISTRIBUTION WIDTH 17.1 % (11.0-15.5); WHITE BLOOD COUNT (AUTO) 6.1 K/uL (4.8-10.8)
[2020-07-28 06:43] LABS: ALBUMIN 2.7 g/dL (3.5-5.0); BILIRUBIN,DIRECT 0.2 mg/dL (0.0-0.3); BILIRUBIN,TOTAL 0.5 mg/dL (0.2-1.0); CREATININE 6.2 mg/dL (0.5-1.5); TOTAL PROTEIN, SERUM 6.4 g/dL (6.0-8.3)
[2020-07-28 08:00] VITALS: BP 152/77
[2020-07-28] MEDS: LISINOPRIL 40 MG TABLET PO SCH (09:24)
[2020-07-28] MEDS: ASPIRIN 81MG TAB.CHEW PO SCH (09:24)
[2020-07-28] MEDS: ISOSORBIDE MONO 30MG TAB SR PO SCH (09:24)
[2020-07-28 09:26] VITALS: BP 152/77
[2020-07-28] MEDS: CARVEDILOL 25 MG TABLET PO SCH (09:26)
== END 2020-07-28 16:00 | disposition home or self-care (01) ==
LOC: EDH 15:50 → OBSVTOIN 19:48 → EDHIP 19:48 → INTOOBSV 19:48 → 3CH 22:32
PROVIDERS: ADMIT Internal Medicine; ATTEND Internal Medicine
DX: E11.22 Type 2 diabetes mellitus with diabetic chronic kidney disease (principal); I12.0 Hypertensive chronic kidney disease with stage 5 chronic kidney disease or end stage renal disease; N18.6 End stage renal disease; E78.5 Hyperlipidemia, unspecified; I16.0 Hypertensive urgency; I25.110 Atherosclerotic heart disease of native coronary artery with unstable angina pectoris; K56.41 Fecal impaction; K74.60 Unspecified cirrhosis of liver; Z99.2 Dependence on renal dialysis
CPT/HCPCS: 36415 ×2; 74176; 80048; 80053; 80076; 82550; 83690; 84484 ×4; 85025 ×2; 85610; 85730; 93005 ×2; 99285; G0378 ×6; J0360 ×2; 90935

== ENCOUNTER → 2020-07-31 | Outpatient (CLI) | payer MEDICARE ==
[~2020-07-31] MED LIST changes: +ALBUMIN (HUMAN) 25% 200 ML IV SCH
--- NOTE | 2020-07-31 10:00 | NUR ---
U/S GD PARACENTESIS PROCEDURE PERFORMED BY DR Dora BOND. PUNCTURE SITE RUQ AND PATIENT TOLERATED PROCEDURE WELL. TOTAL REMOVED 6.4 LITERS OF CLEAR YELLOW FLUID. ALBUMIN 25% 50 GRAMS IV GIVEN DURING PROCEDURE. SPECIMEN SENT TO LAB. END OF PROCEDURE AT 0930. CATHETER REMOVED AND DRESSING APPLIED. NO BLEEDING NOTED. DISCHARGE INSTRUCTIONS GIVEN TO PATIENT AND VERBALIZED UNDERSTANDING. DISCHARGED VIA W/C AT 1000. AAO X3 WITH NO C/O PAIN.
[2020-07-31 14:40] LABS: APPEARANCE BODY FLUID SLIGHTLY CLOUDY (CLEAR); COLOR,BODY FLUID YELLOW (LT YELLOW); SPECIMENTYPE,BODY FLUID ASCITES
[2020-07-31 14:41] LABS: BODY FLUID RBC 69 /cu. mm.; BODY FLUID WBC 183 /cu. mm.; TOTAL VOLUME,BODY FLUID 7600 mL
[2020-07-31 14:50] LABS: BF LYMPHOCYTE 39 %; BF MONOCYTE 22 %
== END ==
LOC: RAH 08:08
PROVIDERS: ATTEND Student in an Organized Health Care Education/Training Program
DX: R18.8 Other ascites (principal); K40.20 Bilateral inguinal hernia, without obstruction or gangrene, not specified as recurrent; N18.6 End stage renal disease
CPT/HCPCS: 49083; 87071; 87205; 89051; A4215; P9046; 96365

== ENCOUNTER → 2020-08-28 | Outpatient (CLI) | payer MEDICARE ==
[2020-08-28 09:33] LABS: INR 0.99 (0.85-1.15); PARTIAL THROMBOPLASTIN TIME 27.6 SEC (26.3-35.5); PROTHROMBIN TIME 10.7 SEC (9.6-11.6)
--- NOTE | 2020-08-28 10:45 | NUR ---
U/S GD PARACENTESIS PROCEDURE PERFORMED BY DR Beena MAXWELL. PUNCTURE SITE RUQ AND PATIENT TOLERATED PROCEDURE WELL. TOTAL REMOVED 3.8 LITERS OF CLEAR YELLOW FLUID. ALBUMIN NOT GIVE PER [facility] PROT[facility]. END OF PROCEDURE AT 1015. CATHETER REMOVED AND DRESSING APPLIED. NO BLEEDING NOTED. DISCHARGE INSTRUCTIONS GIVEN TO PATIENT AND VERBALIZED UNDERSTANDING. DISCHARGED VIA W/C AT 1000. AAO X3 WITH NO C/O PAIN.
== END ==
LOC: RAH 08:50
PROVIDERS: ATTEND Student in an Organized Health Care Education/Training Program
DX: R18.8 Other ascites (principal); K40.20 Bilateral inguinal hernia, without obstruction or gangrene, not specified as recurrent; N18.6 End stage renal disease
CPT/HCPCS: 36415; 49083; 76882; 85610; 85730; A4215

== ENCOUNTER → 2020-09-13 | Outpatient (CLI) | payer MEDICARE ==
[~2020-09-13] MED LIST changes: -ALBUMIN (HUMAN) 25% 200 ML IV SCH
--- NOTE | 2020-09-13 12:45 | NUR ---
U/S GD LT GROIN FLUID ASPIRATION PROCEDURE PERFORMED BY DR Rosalia EVERETT. PUNCTURE SITE LT GROIN. PATIENT TOLERATED PROCEDURE WELL. SPECIMEN COLLECTED AND SENT TO LAB. CATHETER REMOVED AND DRESSING APPLIED. NO BLEEDING NOTED. DISCHARGE INSTRUCTIONS GIVEN TO PATIENT AND VERBALIZED UNDERSTANDING. DISCHARGED VIA AMBULATION AT 1245. AAO X3 WITH NO C/O PAIN.
== END | disposition home or self-care (01) ==
LOC: RAH 10:07
PROVIDERS: ATTEND Student in an Organized Health Care Education/Training Program
DX: K40.20 Bilateral inguinal hernia, without obstruction or gangrene, not specified as recurrent (principal); L76.34 Postprocedural seroma of skin and subcutaneous tissue following other procedure
CPT/HCPCS: 75989; 76942; 87071; 87205; A4215

== ENCOUNTER → 2020-10-25 | Outpatient (CLI) | payer MEDICARE ==
[~2020-10-25] MED LIST changes: +ALBUMIN (HUMAN) 25% 100 ML IV ONE
--- NOTE | 2020-10-25 10:30 | NUR ---
U/S GUIDED PARACENTESIS PROCEDURE PERFORMED BY DR. RODRIGUEZ. PUNCTURE SITE RIGHT UPPER QUADRANT AND PATIENT TOLERATED PROCEDURE WELL. TOTAL REMOVED 6.4 LITERS OF YELLOW CLOUDY ASCITES FLUID. END OF PROCEDURE AT 1120. CATHETER REMOVED AND DRESSING APPLIED. NO BLEEDING NOTED. ALBUMIN 25% 50 GRAMS GIVEN IV PER ALBUMIN PROTOCOL. RIGHT HAND PIV DC'D, BANDAID APPLIED, DRESSING DRY AND INTACT. DISCHARGE INSTRUCTIONS GIVEN TO PATIENT. PATIENT VERBALIZED UNDERSTANDING. PT DISCHARGED AMBULATORY @ 1140. PT STABLE, AAO X 3 WITH NO C/O PAIN.
[2020-10-25 10:53] LABS: INR 0.98 (0.85-1.15); PARTIAL THROMBOPLASTIN TIME 27.8 SEC (26.3-35.5); PROTHROMBIN TIME 10.6 SEC (9.6-11.6)
[2020-10-25 15:28] LABS: APPEARANCE BODY FLUID CLEAR (CLEAR); COLOR,BODY FLUID YELLOW (LT YELLOW); SPECIMENTYPE,BODY FLUID ASCITES; TOTAL VOLUME,BODY FLUID 6400 mL
[2020-10-25 15:29] LABS: BODY FLUID RBC 10 /cu. mm.; BODY FLUID WBC 153 /cu. mm.
[2020-10-25 15:37] LABS: BF LYMPHOCYTE 24 %; BF MESOTHELIAL 65 %
== END ==
LOC: RAH 09:12
PROVIDERS: ATTEND Student in an Organized Health Care Education/Training Program
DX: R18.8 Other ascites (principal); K40.20 Bilateral inguinal hernia, without obstruction or gangrene, not specified as recurrent; N18.6 End stage renal disease
CPT/HCPCS: 36415; 49083; 85610; 85730; 87071; 87205; 89051; A4215; P9046; 96365

== ENCOUNTER → 2020-11-07 | Outpatient (CLI) | payer MEDICARE ==
[~2020-11-07] MED LIST changes: -ALBUMIN (HUMAN) 25% 100 ML IV ONE; +ALBUMIN (HUMAN) 25% 200 ML IV SCH
== END | disposition home or self-care (01) ==
LOC: RAH 07:59
PROVIDERS: ATTEND Student in an Organized Health Care Education/Training Program
DX: R18.8 Other ascites (principal); I12.0 Hypertensive chronic kidney disease with stage 5 chronic kidney disease or end stage renal disease; N18.6 End stage renal disease; Z79.899 Other long term (current) drug therapy; Z98.890 Other specified postprocedural states; Z83.3 Family history of diabetes mellitus
CPT/HCPCS: 49083; A4215; P9046

== ENCOUNTER 2020-11-09 13:28 | Inpatient (IN) | payer MEDICARE ==
[~2020-11-09] VITALS: Ht 185.4 cm; Wt 83.9 kg
[~2020-11-09 13:28] MED LIST changes: -ALBUMIN (HUMAN) 25% 200 ML IV SCH
[2020-11-09 14:08] LABS: BASOPHILS % (AUTO) 0.4 % (0.0-5.0); EOSINOPHILS % (AUTO) 1.3 % (0.0-8.0); HEMATOCRIT 35.4 % (42-54); LYMPHOCYTES % (AUTO) 8.6 % (21.0-51.0); MEAN CORPUSCULAR HEMOGLOBIN 27.9 pg (27.0-33.0); MEAN CORPUSCULAR HGB CONC 32.2 g/dL (32.0-36.0); MEAN CORPUSCULAR VOLUME 86.8 fL (79-99); MONOCYTES % (AUTO) 7.4 % (3.0-13.0); NEUTROPHILS % (AUTO) 81.4 % (40.0-77.0); PLATELET COUNT (AUTO) 198 K/uL (130-400); RED BLOOD CELL COUNT(AUTO) 4.08 MIL/uL (4.50-6.20); RED CELL DISTRIBUTION WIDTH 16.5 % (11.0-15.5); WHITE BLOOD COUNT (AUTO) 7.9 K/uL (4.8-10.8)
[2020-11-09 14:27] LABS: ALBUMIN 3.4 g/dL (3.5-5.0); BILIRUBIN,TOTAL 0.5 mg/dL (0.2-1.0); INR 1.13 (0.85-1.15); TOTAL PROTEIN, SERUM 7.1 g/dL (6.0-8.3)
[2020-11-09 14:28] LABS: PARTIAL THROMBOPLASTIN TIME 30.5 SEC (26.3-35.5)
[2020-11-09 14:30] LABS: CREATININE 10.1 mg/dL (0.5-1.5)
[2020-11-09 14:37] LABS: B-TYPE NATRIURETIC PEPTIDE 1560 pg/mL (0-100)
[2020-11-09] MEDS ORDERED: SODIUM BICARB 50MEQ 50ML VIAL 50 ML ONE (14:46)
[2020-11-09] MEDS ORDERED: CALCIUM GLUCONATE 1 GM/10 ML VIAL IV ONE (14:46)
[2020-11-09] MEDS ORDERED: DEXTROSE 50%-WATER 50 ML DISP.SYRIN IV ONE (14:46)
[2020-11-09] MEDS ORDERED: INSULIN HUMULIN R 100 UNIT/ML 3ML ONE (14:47)
[2020-11-09] MEDS ORDERED: SODIUM CHLORIDE 0.9% 50 ML IV ONE (14:48)
[2020-11-09] MEDS ORDERED: MORPHINE SULFATE 2 MG/ML 1ML SYG IV PRN (18:30)
[2020-11-09] MEDS ORDERED: ACETAMINOPHEN 325 MG TAB PO PRN ×2 (18:30)
[2020-11-09] MEDS ORDERED: ONDANSETRON HCL 4 MG/2 ML VIAL IV PRN (18:30)
[2020-11-09 19:03] LABS: HEMOGLOBIN A1C 5.8 % (4.0-6.0)
[2020-11-09 21:23] LABS: CREATININE 5.8 mg/dL (0.5-1.5)
[2020-11-09 21:28] LABS: ALBUMIN 3.5 g/dL (3.5-5.0); BILIRUBIN,TOTAL 0.5 mg/dL (0.2-1.0)
[2020-11-09 21:38] LABS: BASOPHILS % (AUTO) 0.6 % (0.0-5.0); EOSINOPHILS % (AUTO) 2.6 % (0.0-8.0); HEMATOCRIT 34.4 % (42-54); LYMPHOCYTES % (AUTO) 10.1 % (21.0-51.0); MEAN CORPUSCULAR HEMOGLOBIN 28.1 pg (27.0-33.0); MEAN CORPUSCULAR HGB CONC 32.8 g/dL (32.0-36.0); MEAN CORPUSCULAR VOLUME 85.6 fL (79-99); MONOCYTES % (AUTO) 13.3 % (3.0-13.0); NEUTROPHILS % (AUTO) 72.6 % (40.0-77.0); PLATELET COUNT (AUTO) 214 K/uL (130-400); RED BLOOD CELL COUNT(AUTO) 4.02 MIL/uL (4.50-6.20); RED CELL DISTRIBUTION WIDTH 16.4 % (11.0-15.5); WHITE BLOOD COUNT (AUTO) 7.2 K/uL (4.8-10.8)
[2020-11-10] MEDS: CARVEDILOL 12.5 MG TABLET PO SCH ×2 (04:15→21:00)
[2020-11-10] MEDS ORDERED: CARVEDILOL 12.5 MG TABLET PO ONE ×2 (04:22→20:09)
[2020-11-10 04:23] LABS: BASOPHILS % (AUTO) 0.4 % (0.0-5.0); EOSINOPHILS % (AUTO) 3.9 % (0.0-8.0); HEMATOCRIT 34.6 % (42-54); LYMPHOCYTES % (AUTO) 11.5 % (21.0-51.0); MEAN CORPUSCULAR HEMOGLOBIN 27.9 pg (27.0-33.0); MEAN CORPUSCULAR HGB CONC 32.4 g/dL (32.0-36.0); MEAN CORPUSCULAR VOLUME 86.3 fL (79-99); MONOCYTES % (AUTO) 13.1 % (3.0-13.0); NEUTROPHILS % (AUTO) 70.6 % (40.0-77.0); PLATELET COUNT (AUTO) 198 K/uL (130-400); RED BLOOD CELL COUNT(AUTO) 4.01 MIL/uL (4.50-6.20); RED CELL DISTRIBUTION WIDTH 16.5 % (11.0-15.5); WHITE BLOOD COUNT (AUTO) 7.5 K/uL (4.8-10.8)
[2020-11-10 05:07] LABS: ALBUMIN 3.3 g/dL (3.5-5.0); BILIRUBIN,TOTAL 0.5 mg/dL (0.2-1.0); CREATININE 7.4 mg/dL (0.5-1.5); TOTAL PROTEIN, SERUM 6.9 g/dL (6.0-8.3)
[2020-11-10] MEDS: SODIUM POLYSTYRENE SULFONATE 15 GM/60 ML ML PO SCH (05:15)
[2020-11-10] MEDS ORDERED: SODIUM POLYSTYRENE SULFONATE 15 GM/60 ML ML ONE (06:11)
[2020-11-10] MEDS ORDERED: LISINOPRIL 20 MG TABLET ONE (07:57)
[2020-11-10] MEDS: FAMOTIDINE/PF 20 MG/2 ML VIAL IV SCH (09:00)
[2020-11-10] MEDS: LISINOPRIL 40 MG TABLET PO SCH (09:00)
[2020-11-10] MEDS ORDERED: CALCIUM GLUCONATE 1 GM/10 ML VIAL IV ONE (10:49)
[2020-11-10] MEDS ORDERED: DEXTROSE 50%-WATER 50 ML DISP.SYRIN IV ONE (10:49)
[2020-11-10] MEDS ORDERED: INSULIN HUMULIN R 100 UNIT/ML 3ML ONE (10:50)
[2020-11-10] MEDS ORDERED: SODIUM CHLORIDE 0.9% 50 ML IV ONE (10:51)
[2020-11-10] MEDS ORDERED: FAMOTIDINE 20MG TAB 20 MG TAB ONE (20:09)
[2020-11-10] MEDS: INSULIN HUMULIN R 100 UNIT/ML 3ML SQ SCH (21:00)
[2020-11-10 21:20] VITALS: BP 140/70
[2020-11-10 23:22] VITALS: BP 111/59
[2020-11-11] MEDS: CARVEDILOL 12.5 MG TABLET PO SCH ×3 (01:53→11:16)
[2020-11-11] MEDS: SODIUM POLYSTYRENE SULFONATE 15 GM/60 ML ML PO SCH (01:54)
[2020-11-11 04:14] VITALS: BP 133/69
[2020-11-11 05:13] LABS: BASOPHILS % (AUTO) 0.3 % (0.0-5.0); EOSINOPHILS % (AUTO) 0.9 % (0.0-8.0); HEMATOCRIT 30.9 % (42-54); MEAN CORPUSCULAR HEMOGLOBIN 28.1 pg (27.0-33.0); MEAN CORPUSCULAR HGB CONC 32.7 g/dL (32.0-36.0); MEAN CORPUSCULAR VOLUME 86.1 fL (79-99); NEUTROPHILS % (AUTO) 87.3 % (40.0-77.0); PLATELET COUNT (AUTO) 174 K/uL (130-400); RED BLOOD CELL COUNT(AUTO) 3.59 MIL/uL (4.50-6.20); RED CELL DISTRIBUTION WIDTH 16.2 % (11.0-15.5); WHITE BLOOD COUNT (AUTO) 10.2 K/uL (4.8-10.8)
[2020-11-11 05:59] LABS: ALBUMIN 2.8 g/dL (3.5-5.0); BILIRUBIN,TOTAL 0.5 mg/dL (0.2-1.0); POTASSIUM 5.3 mmol/L (3.5-5.1); TOTAL PROTEIN, SERUM 6.4 g/dL (6.0-8.3)
[2020-11-11] MEDS: INSULIN HUMULIN R 100 UNIT/ML 3ML SQ SCH (06:12)
[2020-11-11 06:13] LABS: CREATININE 9.5 mg/dL (0.5-1.5)
[2020-11-11 08:00] VITALS: BP 135/68
[2020-11-11] MEDS: LISINOPRIL 40 MG TABLET PO SCH ×2 (09:00→11:14)
[2020-11-11] MEDS: FAMOTIDINE/PF 20 MG/2 ML VIAL IV SCH ×2 (09:00→11:15)
[2020-11-11 12:00] VITALS: BP 146/73
== END 2020-11-11 14:00 | disposition home or self-care (01) | DRG 640 ==
LOC: EDH 13:28 → EDHIP 18:26 → 4BH 11-10 21:03
PROVIDERS: ADMIT Hospitalist; ATTEND Hospitalist
PROC: 5A1D70Z Performance of Urinary Filtration, Intermittent, Less than 6 Hours Per Day (ICD-10-PCS; principal; 2020-11-09)
PROC: 5A1D70Z Performance of Urinary Filtration, Intermittent, Less than 6 Hours Per Day (ICD-10-PCS; 2020-11-11)
DX: E87.5 Hyperkalemia (principal); N18.6 End stage renal disease; I12.0 Hypertensive chronic kidney disease with stage 5 chronic kidney disease or end stage renal disease; I44.1 Atrioventricular block, second degree; E87.1 Hypo-osmolality and hyponatremia; Z99.2 Dependence on renal dialysis; K74.60 Unspecified cirrhosis of liver; D64.9 Anemia, unspecified; E11.22 Type 2 diabetes mellitus with diabetic chronic kidney disease; E78.5 Hyperlipidemia, unspecified; E87.70 Fluid overload, unspecified; R79.89 Other specified abnormal findings of blood chemistry; Z20.828 Contact with and (suspected) exposure to other viral communicable diseases; Z53.29 Procedure and treatment not carried out because of patient's decision for other reasons; E88.09 Other disorders of plasma-protein metabolism, not elsewhere classified; Z91.11 Patient's noncompliance with dietary regimen; Z91.15 Patient's noncompliance with renal dialysis; Z83.3 Family history of diabetes mellitus; Z82.49 Family history of ischemic heart disease and other diseases of the circulatory system; Z79.899 Other long term (current) drug therapy
CPT/HCPCS: 36415; 71045; 80053; 82550; 82948; 83036; 83880; 84100; 84132; 84484; 85025; 85610; 85730; 87426; 90935; 93005; 99291; G0378; J0610; J1815; J3490; J7070; U0003

== ENCOUNTER → 2020-11-20 | Outpatient (CLI) | payer MEDICARE ==
[~2020-11-20] MED LIST changes: +ALBUMIN (HUMAN) 25% 200 ML IV SCH
== END | disposition home or self-care (01) ==
LOC: RAH 09:27
PROVIDERS: ATTEND Student in an Organized Health Care Education/Training Program
DX: R18.8 Other ascites (principal); N18.6 End stage renal disease; K40.20 Bilateral inguinal hernia, without obstruction or gangrene, not specified as recurrent
CPT/HCPCS: 76705; P9046

== ENCOUNTER 2021-02-15 11:01 | Emergency (ER) | payer OTHER ==
[~2021-02-15 11:01] MED LIST changes: -ALBUMIN (HUMAN) 25% 200 ML IV SCH; -ISOS30TA6 PO; +ISOS30TA92 PO; -LISI40TA4 PO; +LISI40TA9 PO
[2021-02-15 11:34] LABS: BASOPHILS % (AUTO) 0.5 % (0.0-5.0); EOSINOPHILS % (AUTO) 2.2 % (0.0-8.0); HEMATOCRIT 30.7 % (42-54); LYMPHOCYTES % (AUTO) 9.8 % (21.0-51.0); MEAN CORPUSCULAR HEMOGLOBIN 28.5 pg (27.0-33.0); MEAN CORPUSCULAR HGB CONC 32.6 g/dL (32.0-36.0); MEAN CORPUSCULAR VOLUME 87.5 fL (79-99); MONOCYTES % (AUTO) 13.3 % (3.0-13.0); NEUTROPHILS % (AUTO) 73.9 % (40.0-77.0); PLATELET COUNT (AUTO) 172 K/uL (130-400); RED BLOOD CELL COUNT(AUTO) 3.51 MIL/uL (4.50-6.20); RED CELL DISTRIBUTION WIDTH 15.6 % (11.0-15.5); WHITE BLOOD COUNT (AUTO) 6.2 K/uL (4.8-10.8)
[2021-02-15 11:43] LABS: CARBON DIOXIDE 29 mmol/L (21-32); CHLORIDE 96 mmol/L (101-111); GLOMERULAR FILTR. RATE CALC 7 mL/min (>60); GLUCOSE,RANDOM 129 mg/dL (70-105); SODIUM SERUM 135 mmol/L (136-145); UREA NITROGEN, BLOOD 73 mg/dL (7-18)
[2021-02-15 11:44] LABS: CRP QUANTITATIVE < 2.00 mg/L (0.00-9.0)
[2021-02-15 11:45] LABS: POTASSIUM 6.6 mmol/L (3.5-5.1)
[2021-02-15 11:46] LABS: CREATININE 8.6 mg/dL (0.5-1.5)
[2021-02-15] MEDS ORDERED: ALBUTEROL SULFATE 0.083% 2.5 MG/3 ML INH IH ONE (12:25)
[2021-02-15] MEDS ORDERED: CALCIUM GLUCONATE 1 GM/10 ML VIAL IV ONE (12:33)
[2021-02-15] MEDS ORDERED: SODIUM BICARB 50MEQ 50ML VIAL 50 ML ONE (12:34)
[2021-02-15] MEDS ORDERED: SODIUM CHLORIDE 0.9% 100 ML IV ONE (12:34)
[2021-02-15] MEDS ORDERED: ACETAMINOPHEN-CODEINE 300/30MG TAB ONE (12:34)
== END 2021-02-15 13:20 | disposition home or self-care (01) ==
LOC: EDH 11:01
DX: M25.561 Pain in right knee (principal); E87.5 Hyperkalemia; I12.0 Hypertensive chronic kidney disease with stage 5 chronic kidney disease or end stage renal disease; N18.6 End stage renal disease
CPT/HCPCS: 36415; 73562; 80048; 85025; 86140; 94640; 96365; 96375; 99284; J0610; J3490

== ENCOUNTER 2021-02-26 09:12 | Emergency (ER) | payer OTHER | END 2021-02-26 11:52 | disposition home or self-care (01) | LOC: EDH 09:12 | DX: M25.561 Pain in right knee (principal); R20.0 Anesthesia of skin; R53.1 Weakness; I12.0 Hypertensive chronic kidney disease with stage 5 chronic kidney disease or end stage renal disease; N18.6 End stage renal disease; Z99.2 Dependence on renal dialysis | CPT/HCPCS: 72131; 73552; 73562 ==

== ENCOUNTER → 2021-02-27 | Outpatient (CLI) | payer OTHER ==
[~2021-02-27] MED LIST changes: +ALBUMIN (HUMAN) 25% 200 ML IV SCH
[2021-02-27 08:23] LABS: HEMATOCRIT 34.4 % (42-54); MEAN CORPUSCULAR VOLUME 87.5 fL (79-99); PLATELET COUNT (AUTO) 202 K/uL (130-400); RED BLOOD CELL COUNT(AUTO) 3.93 MIL/uL (4.50-6.20); RED CELL DISTRIBUTION WIDTH 15.4 % (11.0-15.5); WHITE BLOOD COUNT (AUTO) 6.6 K/uL (4.8-10.8)
[2021-02-27 08:46] LABS: INR 1.03 (0.85-1.15); PROTHROMBIN TIME 11.2 SEC (9.6-11.6)
[2021-02-27 09:12] LABS: BASOPHILS % (MANUAL) 3 % (0-2); LYMPHOCYTES % (MANUAL) 18 % (22-44); MONOCYTES % (MANUAL) 11 % (2-9); SEGMENTED NEUTROPHILS % 68 % (40-70)
[2021-02-27 09:13] LABS: MAN.DIFF COMMENT-IMPRESSION MANUAL DIFFERENTIAL
[2021-02-27 09:14] LABS: PLATELET MORPHOLOGY COMMENT ADEQUATE
[2021-02-27 09:24] LABS: ALBUMIN 3.6 g/dL (3.5-5.0); BILIRUBIN,TOTAL 0.4 mg/dL (0.2-1.0); TOTAL PROTEIN, SERUM 8.5 g/dL (6.0-8.3)
[2021-02-27 09:26] LABS: CREATININE 8.6 mg/dL (0.5-1.5); POTASSIUM 6.8 mmol/L (3.5-5.1)
[2021-02-27 15:05] LABS: ALBUMIN,BODY FLUID 3.1 g/dL
[2021-02-27 16:03] LABS: APPEARANCE BODY FLUID CLEAR (CLEAR); SPECIMENTYPE,BODY FLUID ASCITES
[2021-02-27 16:04] LABS: COLOR,BODY FLUID YELLOW (LT YELLOW); TOTAL VOLUME,BODY FLUID 4500 mL
[2021-02-27 16:05] LABS: BODY FLUID RBC 0 /cu. mm.; BODY FLUID WBC 263 /cu. mm.
[2021-02-27 16:18] LABS: BF LYMPHOCYTE 26 %; BF MESOTHELIAL 58 %; BF OTHER CELLS 3
== END ==
LOC: RAH 07:41
PROVIDERS: ATTEND Internal Medicine Gastroenterology
DX: R18.8 Other ascites (principal)
CPT/HCPCS: 36415; 49083; 80053; 82042; 84157; 85025; 85610; 87071; 87205; 89051; A4215; P9046

== ENCOUNTER 2021-05-06 20:13 | Emergency (ER) | payer OTHER ==
[~2021-05-06] VITALS: Ht 154.9 cm; Wt 79.8 kg
[~2021-05-06 20:13] MED LIST changes: -ALBUMIN (HUMAN) 25% 200 ML IV SCH
[2021-05-06 20:53] VITALS: BP 199/98
[2021-05-06] MEDS ORDERED: NITROGLYCERIN 1GM OINT 1 INCH/1GM TD ONE (21:00)
[2021-05-06] MEDS ORDERED: CARVEDILOL 25 MG TABLET PO ONE (21:00)
[2021-05-06] MEDS ORDERED: CLONIDINE HCL 0.1 MG TABLET PO ONE (22:15)
[2021-05-06 23:02] VITALS: BP 144/83
[2021-05-06 23:55] VITALS: BP 125/74
== END 2021-05-07 00:05 | disposition home or self-care (01) ==
LOC: EDH 20:13
DX: T82.838A Hemorrhage due to vascular prosthetic devices, implants and grafts, initial encounter (principal); I12.0 Hypertensive chronic kidney disease with stage 5 chronic kidney disease or end stage renal disease; N18.6 End stage renal disease; Z98.890 Other specified postprocedural states; Z79.899 Other long term (current) drug therapy; Z99.2 Dependence on renal dialysis; Y83.8 Other surgical procedures as the cause of abnormal reaction of the patient, or of later complication, without mention of misadventure at the time of the procedure; Y92.89 Other specified places as the place of occurrence of the external cause

== ENCOUNTER 2022-07-04 07:20 | Emergency (ER) | payer OTHER ==
[~2022-07-04] VITALS: Ht 182.9 cm; Wt 90.7 kg
[2022-07-04] MEDS ORDERED: HYDRALAZINE 20MG/ML VIAL IV ONE (08:00)
[2022-07-04 08:13] VITALS: BP 190/71
== END 2022-07-04 09:18 | disposition home or self-care (01) ==
LOC: EDH 07:20
DX: I12.0 Hypertensive chronic kidney disease with stage 5 chronic kidney disease or end stage renal disease (principal); I16.0 Hypertensive urgency; N18.6 End stage renal disease; E78.00 Pure hypercholesterolemia, unspecified; Z79.899 Other long term (current) drug therapy; Z99.2 Dependence on renal dialysis
CPT/HCPCS: 99284; 96374; 71045; 93005; J0360

== ENCOUNTER 2024-11-11 13:01 | Emergency (ER) | payer OTHER ==
[~2024-11-11] VITALS: Ht 182.9 cm; Wt 92.1 kg
--- NOTE | 2024-11-11 13:30 | ERN ---
ED Note History of Present Illness Stated Complaint: COLD Chief Complaint: Congestion Time Seen by MD: 13:10 Dictation: PATIENT IS A 54-YEAR-OLD MALE COMING IN TODAY WITH COMPLAINTS OF FLU-LIKE SYMPTOMS TO INCLUDE CLEAR RUNNY NOSE, MILD SORE THROAT WITH DRY COUGH HE HAS HAD FOR 4-5 DAYS, ONSET WAS October. NO FEVER NO CHILLS AT THIS TIME. NO NAUSEA NO VOMITING NO LOSS OF TASTE OR SMELL. HE HAS A SIGNIFICANT PAST MEDICAL HISTORY OF A RENAL TRANSPLANT AT [facility] HOWEVER SAID HIS CREATININE SEVERAL DAYS AGO WAS 0.8 AND HE IS DOING WELL. Allergies: Coded Allergies: No Known Allergies (Unverified Allergy, Unknown, 07/30/17) Home Meds Active Scripts Isosorbide Mononitrate (Isosorbide Mononitrate ER) 30 Mg Tab.er.24h, 30 MG PO DAILY, #30 TAB Prov:ANALILIA DEXTER MD 08/02/17 Reported Medications Lisinopril (Lisinopril) 40 Mg Tablet, 40 MG PO DAILY, TAB 07/18/20 Carvedilol (Carvedilol) 25 Mg Tablet, 25 MG PO BID, TAB 07/18/20 Past Medical History Past Medical History: Other Additional Past Medical Hx: KIDNRY Surgical History: Other Surgical History Other: KIDNEY TRANSPLANT Social History: Negative, Other RN Note Reviewed/Agreed w/PFSH: Yes Review of System Dictation CONSTITUTIONAL: NEGATIVE EXCEPT FOR HPI HEAD/FACE: NEGATIVE EXCEPT FOR HPI EENT: NEGATIVE EXCEPT FOR HPI CLEAR RUNNY NOSE WITH MILD SORE THROAT RESPIRATORY: NEGATIVE EXCEPT FOR HPI DRY COUGH GASTROINTESTINAL/ABDOMINAL: NEGATIVE EXCEPT FOR HPI GENITOURINARY: NEGATIVE EXCEPT FOR HPI MUSCULOSKELETAL: NEGATIVE EXCEPT FOR HPI INTEGUMENTARY: NEGATIVE EXCEPT FOR HPI NEUROLOGICAL/PSYCH: NEGATIVE EXCEPT FOR HPI HEMATOLOGIC/LYMPHATIC: NEGATIVE EXCEPT FOR HPI ALL SYSTEMS NEGATIVE, EXCEPT NOTED ABOVE. 13 POINT REVIEW OF SYSTEMS ASSESSED AND ALL NEGATIVE EXCEPT FOR ABOVE. Initial Vital Sign VS Vital Signs Date Time Temp Pulse Resp B/P (MAP) Pulse Ox O2 Delivery O2 Flow Rate FiO2 11/11/24 13:02 98.1 91 16 110/70 97 Room Air 0 11/11/24 13:09 21 Physical Exam Dictation VITAL SIGNS REVIEWED GENERAL APPEARANCE: ALERT, ORIENTED X 3, NO ACUTE DISTRESS, WELL DEVELOPED, NOURISHED. HEAD AND FACE: NON-TRAUMATIC. EYES: PERRL, PINK CONJUNCTIVAS, EYELID NO TRAUMA, ANTERIOR CHAMBER WITH ARCUS SENILIS. EARS: PINNAS INTACT AND NO SIGNS OF TRAUMA OR ERYTHEMA EAR CANALS CLEAR AND NO DISCHARGE TM NO ERYTHEMA NOSE: CLEAR DISCHARGE, NO BLEEDING. OROPHARYNX: MOUTH NORMAL, TONGUE PINK, PHARYNX CLEAR, MILD PHARYNGEAL ERYTHEMA, TONSILS NO EXUDATES, NO ABSCESSES NOTED, MUCOUS MEMBRANE MOIST UVULA IS MIDLINE, VOICE IS CLEAR. NO SOME TONSILLAR LYMPHADENOPATHY NECK: SUPPLE, NON-TENDER, NO THYROMEGALY, NO MASSES, NO JVD, NO BRUITS BREAST:DEFERRED CHEST:NO TENDERNESS, NO CREPITUS, NO PARADOXICAL MOVEMENT, NO RETRACTIONS LUNGS:CLEAR, WELL-VENTILATED, SYMMETRIC, NO RALES, NO WHEEZING, NO RHONCHI, NO STRIDOR, GOOD BREATH SOUNDS BILATERALLY HEART: REGULAR RATE, REGULAR RHYTHM, NO MURMUR, NO GALLOPS VASCULAR: NO PERIPHERAL EDEMA, ABDOMEN: SOFT, POSITIVE BOWEL SOUNDS, NONDISTENDED, NO GUARDING, NONTENDER, NO REBOUND, NO MASSES NO HEPATOMEGALY, NO SPLENOMEGALY, NO RANKIN'S SIGN, NO HERNIAS. RECTAL: DEFERRED GENITAL: DEFERRED NEUROLOGICAL: NORMAL SPEECH, MOTOR FUNCTION INTACT, SENSORY FUNCTION INTACT MUSCULOSKELETAL: NECK NONTENDER, FULL RANGE OF MOTION, BACK NONTENDER, FULL RANGE OF MOTION, EXTREMITIES: NONTENDER, FULL RANGE OF MOTION SKIN: COLOR PINK, DRY, NO TURGOR, NO RASH, NO LACERATIONS, NO ABRASIONS, NO CONTUSIONS. LYMPHATIC: DEFERRED Results (Laboratory/Radiology) Laboratory/Radiology Laboratory Tests Test 11/11/24 14:39 Influenza Type A Antigen Negative For Type A Influenza Type B Antigen Negative For Type B SARS-CoV-2 Antigen (Rapid) PRESUMPTIVE NEGATIVE Group A Streptococcus Rapid negative (NEGATIVE) Labs Reviewed?: Yes ED Course ED Course Orders Procedure Category Date Status Time Covid19 (Sars Antigen LAB 11/11/24 Complete Rapid) 13:28 Influenza Type A & B, LAB 11/11/24 Complete Rapid 13:28 Rapid (Group A Strep) LAB 11/11/24 Complete 13:28 Vital Signs Date Time Temp Pulse Resp B/P (MAP) Pulse Ox O2 Delivery O2 Flow Rate FiO2 11/11/24 15:09 98.4 89 17 119/73 97 Room Air* 0 21 11/11/24 13:09 98.2 91 16 110/70 97 Room Air* 0 21 11/11/24 13:02 98.1 91 16 110/70 97 Room Air 0 3 50, PATIENT DISCHARGED HOME WITH NEGATIVE FLU COVID AND STREP. TOLD TO SEE HIS PRIMARY CARE DOCTOR AND WE WILL BE TREATED FOR VIRAL URI Medical Decision Making MDM MEDICAL DECISION-MAKING BASED ON SWABS FOR FLU COVID AND STREP. ALL SWABS WERE NEGATIVE DISCHARGED HOME WITH VIRAL URI TOLD TO SEE HIS PRIMARY CARE DOCTOR. DX & DISP Disposition: Discharge Departure Impression: Primary Impression: Acute pharyngitis, unspecified Additional Impression: Viral URI with cough Condition: Stable Scripts Benzonatate (Tessalon Perles) 100 Mg Cap 100 MG PO TID for cough, #30 CAP 0 Refills Prov: RIVER MACE NP 11/11/24 Azithromycin (Zithromax Tri-Tomasz) 500 Mg Tablet 500 MG PO DAILY for 5 Days, #5 TAB Prov: RIVER MACE NP 11/11/24 Additional Instructions: Follow-up with primary care provider in 1 to 2 days. Take medications as directed here in the emergency room. Okay to continue home medications unless o therwise discussed during your visit in the emergency room today. Return to your nearest emergency room if symptoms worsen or if there is no improvement. Call 911 if you need immediate assistance. Take Tylenol or Motrin [id number] as needed and if no contraindications are present. Increase oral hydration. A wound culture or urine culture was ordered here in the emergency room department please follow-up with primary care provider and advise them to get repeat ports from our facility. If you had any Manuel wrap/splints that were applied here, please do not remove them until you see your primary care or specialty. Take antibiotics as directed until gone., take Tessalon as needed for cough. See your primary care doctor for follow up Referrals: DOMINGO DE DIOS DO (PCP) Time of Disposition: 15:55 I have reviewed the case, and I agree with, Diagnosis and Plan RIVER MACE NP Nov 11, 2024 13:30
[2024-11-11 15:09] VITALS: BP 119/73; PULSE 89; RESP 17; TEMP 98.5; O2SAT 97
[2024-11-11 15:25] LABS: RAPID GROUP A STREP negative (NEGATIVE)
[2024-11-11 15:36] LABS: COVID19 (SARS ANTIGEN RAPID) PRESUMPTIVE NEGATIVE (NEGATIVE); INFLUENZA TYPE A Negative For Type A (NEGATIVE); INFLUENZA TYPE B Negative For Type B (NEGATIVE)
[2024-11-11] MEDS ORDERED: BENZ-39 PO (15:55)
[2024-11-11] MEDS ORDERED: AZIT500T2 PO (15:55)
== END 2024-11-11 16:15 | disposition home or self-care (01) ==
LOC: EDH 13:01
DX: J02.8 Acute pharyngitis due to other specified organisms (principal); B97.89 Other viral agents as the cause of diseases classified elsewhere; Z20.822 Contact with and (suspected) exposure to COVID-19; Z79.899 Other long term (current) drug therapy; Z94.0 Kidney transplant status
CPT/HCPCS: 87426; 87804; 87880; 99283